=== PATIENT | female | born 1975 | race Caucasian/White ===

== ENCOUNTER 2017-12-25 22:44 | Inpatient (IN) | payer OTHER ==
[~2017-12-25] VITALS: Ht 157.5 cm; Wt 42.2 kg
[2017-12-25 22:54] VITALS: Ht 157.5 cm; Wt 42.2 kg
[2017-12-25 23:24] LABS: BASOPHIL % 0.3 % (0-2)
[2017-12-25 23:28] LABS: PLATELET COUNT 566 x10^3mcL (130-400); RED CELL DISTRIBUTION WIDTH 18.4 % (11.5-14.5)
[2017-12-25 23:50] LABS: ALKALINE PHOSPHATASE 161 U/L (46-116); ALT/SGPT 21 U/L (14-59); AST/SGOT 27 U/L (15-37); BILIRUBIN TOTAL 0.2 mg/dL (0.20-1.00); CALCIUM 8.4 mg/dL (8.5-10.1); CARBON DIOXIDE 27.6 mmol/L (21-32); CHLORIDE SERUM 100 mmol/L (98-107); GFR1 > 60 mL/min; SODIUM SERUM 136 mmol/L (136-145); TOTAL PROTEIN, SERUM 7.4 g/dL (6.4-8.2)
[2017-12-25 23:55] LABS: ALBUMIN 2.9 g/dL (3.4-5.0)
[2017-12-25 23:57] LABS: GLUCOSE SERUM 741 mg/dL (74-106); POTASSIUM SERUM 2.8 mmol/L (3.5-5.1)
[2017-12-26] MEDS ORDERED: GABAPENTIN800 M1 PO (00:38)
[2017-12-26] MEDS ORDERED: HUMALOG100 U/ML SC (00:38)
[2017-12-26] MEDS ORDERED: AMBIEN5 MG PO (00:39)
[2017-12-26] MEDS ORDERED: NOR10T PO (00:39)
[2017-12-26 01:35] VITALS: BP 125/79
[2017-12-26 01:49] LABS: MAGNESIUM 2.2 mg/dL (1.8-2.4); PHOSPHOROUS 2.2 mg/dL (2.5-4.9)
[2017-12-26 01:50] LABS: CHOLESTEROL/HDL RATIO 1.6
[2017-12-26 02:09] LABS: FREE T4 1.27 ng/dL (0.76-1.46); FREE THYROXINE INDEX 3.5 ug/dL (1.4-4.5); T4(THYROXINE) 11.2 ug/dL (4.7-13.3)
[2017-12-26 02:18] LABS: T3 TOTAL 0.79 ng/mL
[2017-12-26 03:26] LABS: CALCIUM 7.9 mg/dL (8.5-10.1); CARBON DIOXIDE 25.7 mmol/L (21-32); CHLORIDE SERUM 106 mmol/L (98-107); CREATININE SERUM 0.9 mg/dL (0.6-1.0); GFR1 > 60 mL/min; POTASSIUM SERUM 3.4 mmol/L (3.5-5.1); SODIUM SERUM 140 mmol/L (136-145)
[2017-12-26 03:54] LABS: GLUCOSE SERUM 630 mg/dL (74-106)
[2017-12-26] MEDS ORDERED: LANTUS SOLOS100 U/M1 SC (04:53)
[2017-12-26 06:19] VITALS: BP 107/73
[2017-12-26 06:59] LABS: BASOPHIL % 0 % (0-2); PLATELET COUNT 569 x10^3mcL (130-400); RED CELL DISTRIBUTION WIDTH 18.3 % (11.5-14.5)
[2017-12-26 07:03] LABS: rbc morphology (normal/abnorm) ABNORMAL (NORMAL)
[2017-12-26 07:24] LABS: CALCIUM 7.8 mg/dL (8.5-10.1); CARBON DIOXIDE 24.1 mmol/L (21-32); CHLORIDE SERUM 111 mmol/L (98-107); CREATININE SERUM 0.9 mg/dL (0.6-1.0); GFR1 > 60 mL/min; GLUCOSE SERUM 417 mg/dL (74-106); POTASSIUM SERUM 5.3 mmol/L (3.5-5.1); SODIUM SERUM 143 mmol/L (136-145)
== END 2017-12-26 07:47 | disposition left against medical advice (07) | DRG 48 ==
LOC: ED 22:44 → DU 12-26 00:29
PROVIDERS: Emergency Medicine; Student in an Organized Health Care Education/Training Program
DX: G90.8 Other disorders of autonomic nervous system (principal); E43 Unspecified severe protein-calorie malnutrition; G93.41 Metabolic encephalopathy; E11.40 Type 2 diabetes mellitus with diabetic neuropathy, unspecified; E87.6 Hypokalemia; I10 Essential (primary) hypertension; E11.65 Type 2 diabetes mellitus with hyperglycemia; Z53.29 Procedure and treatment not carried out because of patient's decision for other reasons; S09.90XA Unspecified injury of head, initial encounter; Z53.21 Procedure and treatment not carried out due to patient leaving prior to being seen by health care provider; M79.7 Fibromyalgia; W01.0XXA Fall on same level from slipping, tripping and stumbling without subsequent striking against object, initial encounter; Y93.89 Activity, other specified; Y92.89 Other specified places as the place of occurrence of the external cause; Y99.8 Other external cause status; Z88.0 Allergy status to penicillin; Z88.5 Allergy status to narcotic agent; Z88.6 Allergy status to analgesic agent; Z68.1 Body mass index [BMI] 19.9 or less, adult
CPT/HCPCS: 83880; 84439; J3010; J3480; J7030

== ENCOUNTER 2018-01-10 23:58 | Inpatient (IN) | payer OTHER ==
[~2018-01-10] VITALS: Ht 157.5 cm; Wt 44.7 kg
[~2018-01-10 23:58] MED LIST: AMBIEN5 MG PO; GABAPENTIN800 M1 PO; HUMALOG100 U/ML SC; LANTUS SOLOS100 U/M1 SC; NOR10T PO
[2018-01-11 03:02] LABS: microscopic required? NO
[2018-01-11 03:39] LABS: BASOPHIL % 0.3 % (0-2)
[2018-01-11 03:42] LABS: RED CELL DISTRIBUTION WIDTH 18.5 % (11.5-14.5)
[2018-01-11 03:43] LABS: urine erythrocyte NEGATIVE (NEGATIVE)
[2018-01-11 03:52] LABS: PLATELET COUNT 503 x10^3mcL (130-400)
[2018-01-11 04:16] LABS: ALKALINE PHOSPHATASE 153 U/L (46-116); ALT/SGPT 19 U/L (14-59); AST/SGOT 19 U/L (15-37); BILIRUBIN TOTAL 0.14 mg/dL (0.20-1.00); CALCIUM 8.3 mg/dL (8.5-10.1); CARBON DIOXIDE 26.5 mmol/L (21-32); CHLORIDE SERUM 106 mmol/L (98-107); CREATININE SERUM 0.4 mg/dL (0.6-1.0); GFR1 > 60 mL/min; LIPASE 40 IU/L (73-393); SODIUM SERUM 142 mmol/L (136-145); TOTAL PROTEIN, SERUM 7.7 g/dL (6.4-8.2)
[2018-01-11 04:17] LABS: ALBUMIN 2.5 g/dL (3.4-5.0)
[2018-01-11 04:19] LABS: GLUCOSE SERUM 42 mg/dL (74-106)
[2018-01-11] MEDS ORDERED: FLE10 PO (05:13)
[2018-01-11 08:01] LABS: MAGNESIUM 1.9 mg/dL (1.8-2.4); PHOSPHOROUS 2.2 mg/dL (2.5-4.9)
[2018-01-11 08:02] LABS: CHOLESTEROL/HDL RATIO 2.2
[2018-01-11 08:11] LABS: FREE T4 1.08 ng/dL (0.76-1.46); FREE THYROXINE INDEX 2.8 ug/dL (1.4-4.5)
[2018-01-11 08:20] LABS: AMPHETAMINE QUAL UR NONE DETECTED (See below)
[2018-01-11 08:43] VITALS: BP 95/57
[2018-01-11 09:09] LABS: TOTAL IRON BINDING CAPACITY 286 ug/dL (250-450)
[2018-01-11 09:11] LABS: IRON 14 ug/dL (50-170)
[2018-01-11 09:55] LABS: T3 TOTAL 1.03 ng/mL
[2018-01-11 10:09] LABS: RED BLOOD CELLS 3.14 M/mm3 (4.10-5.10)
[2018-01-11] MEDS ORDERED: CLEOCIN HCL150 MG PO (10:15)
[2018-01-11] MEDS ORDERED: LEVAQUIN500 M1 PO (10:15)
[2018-01-11] MEDS ORDERED: LAC PO (10:16)
[2018-01-11 10:30] VITALS: BP 95/57
[2018-01-12 14:36] VITALS: Ht 157.5 cm; Wt 44.7 kg
== END 2018-01-11 10:22 | disposition left against medical advice (07) | DRG 720 ==
LOC: ED 23:58 → DU 01-11 04:29
PROVIDERS: Emergency Medicine; Family Medicine
DX: A41.9 Sepsis, unspecified organism (principal); E43 Unspecified severe protein-calorie malnutrition; E11.40 Type 2 diabetes mellitus with diabetic neuropathy, unspecified; E11.649 Type 2 diabetes mellitus with hypoglycemia without coma; L03.115 Cellulitis of right lower limb; F17.210 Nicotine dependence, cigarettes, uncomplicated; L03.116 Cellulitis of left lower limb; E87.6 Hypokalemia; I10 Essential (primary) hypertension; E05.90 Thyrotoxicosis, unspecified without thyrotoxic crisis or storm; M17.0 Bilateral primary osteoarthritis of knee; E11.65 Type 2 diabetes mellitus with hyperglycemia; D47.3 Essential (hemorrhagic) thrombocythemia; D64.9 Anemia, unspecified; M79.7 Fibromyalgia; E83.39 Other disorders of phosphorus metabolism; E11.621 Type 2 diabetes mellitus with foot ulcer; L97.519 Non-pressure chronic ulcer of other part of right foot with unspecified severity; L97.529 Non-pressure chronic ulcer of other part of left foot with unspecified severity; Z88.0 Allergy status to penicillin; Z88.6 Allergy status to analgesic agent; Z68.1 Body mass index [BMI] 19.9 or less, adult
CPT/HCPCS: 83880; 84439; J1956; J2270; J3480; J3490; J7030; Q0092